=== PATIENT | male | born 1960 | race Caucasian/White ===

== ENCOUNTER 2024-10-26 08:36 | Day surgery (SDC) | payer MEDICARE ==
[2024-10-26] MEDS ORDERED: LIDOCAINE 0.5%-EPI 1:200,000 50 ML VIAL ONE ×2 (08:48→08:50)
[2024-10-26] MEDS ORDERED: ANESTHESIA TRAY IN PYXIS 1 EA TRAY MC ONE (08:48)
[2024-10-26] MEDS ORDERED: BUPIVACAINE 0.5 % PF 150 MG/30 ML VIAL ONE (08:48)
[2024-10-26] MEDS ORDERED: LIDOCAINE 1% INJ 50 ML MDV IJ ONE (08:48)
[2024-10-26] MEDS ORDERED: LIDOCAINE 1%-EPI 1:100,000 20 ML VIAL ONE (08:49)
[2024-10-26] MEDS ORDERED: BUPIVACAINE 0.25% 75 MG/30 ML VIAL ONE (09:22)
[2024-10-26] MEDS ORDERED: FENTANYL PF 100MCG/2ML AMPUL ONE (09:24)
[2024-10-26] MEDS ORDERED: OXYC-128 PO (10:25)
== END 2024-10-26 12:00 | disposition home or self-care (01) ==
LOC: DS 08:36
PROVIDERS: ATTEND Student in an Organized Health Care Education/Training Program
DX: E11.621 Type 2 diabetes mellitus with foot ulcer (principal); M86.671 Other chronic osteomyelitis, right ankle and foot; E11.40 Type 2 diabetes mellitus with diabetic neuropathy, unspecified; L97.513 Non-pressure chronic ulcer of other part of right foot with necrosis of muscle; E11.65 Type 2 diabetes mellitus with hyperglycemia; Z79.4 Long term (current) use of insulin; Z79.899 Other long term (current) drug therapy; Z98.890 Other specified postprocedural states
CPT/HCPCS: 28820; 73630; 82962; J0690; J2704; J3010; J3490; J7030